=== PATIENT | male | born 1950 | race Caucasian/White ===

== ENCOUNTER → 2022-04-23 | Outpatient (CLI) | payer OTHER | END | disposition home or self-care (01) | LOC: RAH 14:26 | PROVIDERS: ATTEND Orthopaedic Surgery | DX: M17.12 Unilateral primary osteoarthritis, left knee (principal); M25.762 Osteophyte, left knee; G95.89 Other specified diseases of spinal cord | CPT/HCPCS: 73700 ==

== ENCOUNTER 2022-04-28 07:09 | Observation (INO) | payer OTHER ==
[2022-04-22 13:25] LABS: BASOPHILS % (AUTO) 0.3 % (0.0-5.0); EOSINOPHILS % (AUTO) 0.7 % (0.0-8.0); HEMATOCRIT 45.7 % (42-54); LYMPHOCYTES % (AUTO) 13.6 % (21.0-51.0); MEAN CORPUSCULAR HEMOGLOBIN 30.1 pg (27.0-33.0); MEAN CORPUSCULAR HGB CONC 32.8 g/dL (32.0-36.0); MEAN CORPUSCULAR VOLUME 91.6 fL (79-99); NEUTROPHILS % (AUTO) 79.9 % (40.0-77.0); PLATELET COUNT (AUTO) 189 K/uL (130-400); RED BLOOD CELL COUNT(AUTO) 4.99 MIL/uL (4.50-6.20); RED CELL DISTRIBUTION WIDTH 12.6 % (11.0-15.5); WHITE BLOOD COUNT (AUTO) 11.1 K/uL (4.8-10.8)
[2022-04-22 13:32] LABS: CREATININE 1.3 mg/dL (0.5-1.5); POTASSIUM 4.1 mmol/L (3.5-5.1)
[2022-04-22 13:33] LABS: INR 0.94 (0.85-1.15); PROTHROMBIN TIME 10.3 SEC (9.6-11.6)
[2022-04-22 13:34] LABS: PARTIAL THROMBOPLASTIN TIME 26.8 SEC (26.3-35.5)
[2022-04-27 11:33] VITALS: BP 140/75
[~2022-04-28] VITALS: Ht 177.8 cm; Wt 116.6 kg
[2022-04-28] VITALS (27 sets, daily range): BP systolic 126–159; BP diastolic 48–87
[~2022-04-28 07:09] MED LIST: AMLO-258 PO; ATEN50TA PO; CITA10SO PO; LEVO125C4 PO; PHEN-615 PO; PRED5TAB PO; ROSU20TA31 PO; TOPI200T16 PO
[2022-04-28] MEDS: CEFAZOLIN SODIUM 1 GM VIAL IVP ONE ×2 (08:00→11:15)
[2022-04-28] MEDS ORDERED: LACTATED RINGERS 1000ML 1,000 ML IV SCH (08:00)
[2022-04-28] MEDS: LEVOTHYROXINE 125 MCG TABLET PO SCH (08:40)
[2022-04-28] MEDS: PREDNISONE 5 MG TABLET PO SCH (09:00)
[2022-04-28] MEDS: ATENOLOL 50 MG TABLET PO SCH ×2 (09:00→21:19)
[2022-04-28] MEDS: CITALOPRAM 20 MG TABLET PO SCH (09:00)
[2022-04-28] MEDS: AMLODIPINE 5 MG TAB PO SCH (09:00)
[2022-04-28] MEDS: TOPIRAMATE 100 MG TAB PO SCH ×2 (09:00→21:00)
[2022-04-28] MEDS ORDERED: TRANEXAMIC ACID 1000MG/10ML ONE (10:31)
[2022-04-28] MEDS ORDERED: DEXAMETHASONE SOD PHOSPHATE 10MG/ML 1ML VIAL ONE (10:33)
[2022-04-28] MEDS ORDERED: SUCCINYLCHOLINE 200MG/10ML SYR ONE (10:33)
[2022-04-28] MEDS ORDERED: ONDANSETRON 4MG INJ ONE (10:33)
[2022-04-28] MEDS ORDERED: GLYCOPYRROLATE 1 MG/5 ML SYRINGE ONE (10:33)
[2022-04-28] MEDS ORDERED: PROPOFOL 10 MG/ML 20ML VIAL IV ONE (10:34)
[2022-04-28] MEDS ORDERED: NEOSTIGMINE 5MG/5ML SYR IV ONE (10:34)
[2022-04-28] MEDS ORDERED: FENTANYL CITRATE PF 50 MCG/1 ML 2ML VIAL ONE ×3 (10:34→14:07)
[2022-04-28] MEDS ORDERED: ROCURONIUM 10MG/1ML SYR 10 MG/ML ML ONE ×2 (10:34→11:35)
[2022-04-28] MEDS ORDERED: HYDROCODONE/ACETAMINOPHEN 5/325 MG TAB PO PRN (11:30)
[2022-04-28] MEDS ORDERED: ACETAMINOPHEN 500 MG TABLET PO SCH (11:30)
[2022-04-28] MEDS ORDERED: MORPHINE 4 MG SYG IVP PRN (11:30)
[2022-04-28] MEDS ORDERED: FERROUS FUMARATE 324 MG TABLET PO PRN (11:30)
[2022-04-28] MEDS: 0.9%NACL 1000ML 1,000 ML IV SCH (11:30)
[2022-04-28] MEDS: TRAMADOL HCL 50 MG TABLET PO SCH ×2 (12:00→16:41)
[2022-04-28] MEDS ORDERED: MEPERIDINE-PF 25 MG/ML SYG ONE ×2 (12:49→13:23)
[2022-04-28] MEDS: KETOROLAC 15MG/ML VIAL (15MG/ML) IV PRN ×2 (13:32→16:38)
[2022-04-28] MEDS: ONDANSETRON 4MG INJ IVP PRN ×2 (13:32→16:38)
[2022-04-28] MEDS: HYDROCODONE/ACETAMINOPHEN 10/325 MG TAB PO PRN ×2 (16:38→22:00)
[2022-04-28] MEDS: CEFAZOLIN SODIUM 1 GM VIAL IVP SCH (16:38)
[2022-04-28] MEDS ORDERED: FAMOTIDINE 20MG TAB PO SCH (21:00)
[2022-04-28] MEDS: ASPIRIN 81 MG EC TAB PO SCH (21:18)
[2022-04-28] MEDS: ACETAMINOPHEN 500 MG TABLET PO SCH (22:00)
[2022-04-29] VITALS: BP 150/75
[2022-04-29] MEDS: CEFAZOLIN SODIUM 1 GM VIAL IVP SCH (00:24)
[2022-04-29] MEDS: TRAMADOL HCL 50 MG TABLET PO SCH ×3 (00:24→11:41)
[2022-04-29] MEDS: HYDROCODONE/ACETAMINOPHEN 10/325 MG TAB PO PRN ×2 (01:54→09:02)
[2022-04-29] MEDS: KETOROLAC 15MG/ML VIAL (15MG/ML) IV PRN (03:53)
[2022-04-29 04:00] VITALS: BP 137/67
[2022-04-29 05:31] LABS: HEMATOCRIT 41.9 % (42-54); MEAN CORPUSCULAR HEMOGLOBIN 29.7 pg (27.0-33.0); MEAN CORPUSCULAR HGB CONC 32.5 g/dL (32.0-36.0); MEAN CORPUSCULAR VOLUME 91.5 fL (79-99); RED BLOOD CELL COUNT(AUTO) 4.58 MIL/uL (4.50-6.20); RED CELL DISTRIBUTION WIDTH 12.3 % (11.0-15.5); WHITE BLOOD COUNT (AUTO) 16.7 K/uL (4.8-10.8)
[2022-04-29 05:47] LABS: CREATININE 1.5 mg/dL (0.5-1.5); POTASSIUM 4.1 mmol/L (3.5-5.1)
[2022-04-29] MEDS: LEVOTHYROXINE 125 MCG TABLET PO SCH (05:56)
[2022-04-29] MEDS: ACETAMINOPHEN 500 MG TABLET PO SCH ×2 (05:57→13:44)
[2022-04-29 07:30] VITALS: BP 129/66
[2022-04-29] MEDS: 0.9%NACL 1000ML 1,000 ML IV SCH (07:30)
[2022-04-29] MEDS: CITALOPRAM 20 MG TABLET PO SCH (09:00)
[2022-04-29] MEDS: TOPIRAMATE 100 MG TAB PO SCH (09:00)
[2022-04-29] MEDS: PREDNISONE 5 MG TABLET PO SCH (09:00)
[2022-04-29] MEDS ORDERED: PHENTERMINE HCL 37.5 MG PO SCH (09:00)
[2022-04-29] MEDS ORDERED: POLYETHYLENE GLYCOL 3350 17 GM POWD.PACK PO SCH (09:00)
[2022-04-29] MEDS: ATENOLOL 50 MG TABLET PO SCH (09:02)
[2022-04-29] MEDS: AMLODIPINE 5 MG TAB PO SCH (09:03)
[2022-04-29] MEDS: ASPIRIN 81 MG EC TAB PO SCH (09:03)
[2022-04-29 11:25] VITALS: BP 130/60
[2022-04-29 15:25] VITALS: BP 139/54
[2022-05-01] MEDS ORDERED: BISACODYL 10 MG SUPP.RECT RC PRN (11:30)
== END 2022-04-29 17:14 | disposition home or self-care (01) ==
LOC: DAH 07:09 → DAHIP 07:10 → DAH 07:10 → 4DH 16:20
PROVIDERS: ADMIT Orthopaedic Surgery; ATTEND Orthopaedic Surgery
DX: M17.12 Unilateral primary osteoarthritis, left knee (principal); Z20.822 Contact with and (suspected) exposure to COVID-19; E78.5 Hyperlipidemia, unspecified; F41.9 Anxiety disorder, unspecified; Z79.899 Other long term (current) drug therapy; Z98.890 Other specified postprocedural states
CPT/HCPCS: 80048 ×2; 85025; 85610; 85730; 87426; 36415 ×2; 87641; 27447; 96374; 96375 ×2; 76942; 64447; 93005; 97039 ×2; 96376; 85027; 97161; 97116 ×2; 97530 ×2; A6260; G0378 ×24; J7030; J7120 ×2; C1776; J3010 ×3; J0690 ×3; J3490 ×2; J0330; J1100; J2710; J7512 ×2; J2704; J2405 ×2; J2270; J2175 ×2; J1885 ×2; G0168; A4649 ×3; A4930; A6255; A6254; A5120 ×2; A4215; A4223; A4222; A4221; A4663